=== PATIENT | male | born 1955 | race Caucasian/White ===

== ENCOUNTER → 2019-07-21 | Outpatient (CLI) | payer MEDICARE, OTHER ==
--- NOTE | 2019-07-21 13:42 | Diagnostic Imaging Report ---
PROCEDURE: MR imaging cervical spine without contrast. TECHNIQUE: Multiplanar, multisequence MR imaging of the cervical spine was performed without contrast. INDICATION: Neck pain. COMPARISON: No prior studies are available for comparison. FINDINGS: Curvature and alignment of the cervical spine is normal. Marrow signal intensity is unremarkable apart from occasional benign-appearing hemangiolipomas, largest located within the T2 vertebral body. There is generalized degenerative disc disease with variable disc space narrowing and desiccation. The cervical cord demonstrates normal signal intensity and normal morphology. C2-C3: Central canal and neuroforamina are widely patent. C3-C4: No significant central canal narrowing is seen. There is mild bilateral neuroforaminal narrowing due to uncovertebral joint degenerative change. C4-C5: Endplate osteophytes indent the ventral thecal sac. The central canal is widely patent. There is significant right and moderate left neuroforaminal narrowing. C5-C6: Endplate osteophytes indent the ventral thecal sac. Central canal is patent. There is moderate bilateral neuroforaminal stenosis. C6-C7: Central canal and neuroforamina are widely patent. C7-T1: Central canal and neuroforamina are widely patent. Paraspinous tissues are unremarkable. IMPRESSION: Generalized cervical spondylosis with multilevel neuroforaminal narrowing, described level by level above. No central canal stenosis is detected. Dictated by: Dictated on workstation # [id number]
--- NOTE | 2019-07-21 15:02 | Diagnostic Imaging Report ---
CLINICAL INDICATION: Patient with back pain. EXAM: MRI of the thoracic spine performed without IV contrast. Sequences include sagittal T1, sagittal T2, sagittal T2 fat-sat, and axial T2. COMPARISON: None. FINDINGS: There is a large intraosseous hemangioma within the T2 vertebra with some sparing of the right side of the vertebra. There is no acute thoracic spine fracture or dislocation. There is a small intraosseous hemangioma within the T9 vertebra. There are mildly hypertrophic spurs seen throughout the mid and lower thoracic spine. There is xjku-at-ziqizyuq facet arthropathy involving the thoracic spine which is most pronounced in the upper portion. There is a small posterior disc bulge at the T2-T3 and T6-T7 levels. There is no significant paraspinal soft tissue abnormality. There is moderate loss of intervertebral disc height at the T9-T10 level. There is no significant central spinal canal or neural foramen narrowing. IMPRESSION: 1: There is no acute fracture or dislocation. 2: There is mild thoracic spine degenerative disease. There is no significant central spinal canal or neural foramen narrowing. 3: There is intraosseous hemangioma within the T3 vertebra. Dictated by: Dictated on workstation # [id number]
== END ==
LOC: RAD 12:21
PROVIDERS: ATTEND Nurse Practitioner
DX: M47.22 Other spondylosis with radiculopathy, cervical region (principal); M50.10 Cervical disc disorder with radiculopathy, unspecified cervical region; M25.78 Osteophyte, vertebrae; M48.02 Spinal stenosis, cervical region; D18.09 Hemangioma of other sites; M47.814 Spondylosis without myelopathy or radiculopathy, thoracic region
CPT/HCPCS: 72141; 72146

== ENCOUNTER → 2019-10-21 | Outpatient (CLI) | payer MEDICARE, OTHER ==
[~2019-10-21] VITALS: Ht 182.9 cm; Wt 90.5 kg
[~2019-10-21] MED LIST: LIDOCAINE 1% INJ 20 ML 20 ML VIAL INJ ONE; LIDOCAINE 1% INJ 20 ML 20 ML VIAL ONE
--- NOTE | 2019-10-21 09:45 | Diagnostic Imaging Report ---
INDICATION: Thyroid nodule. Patient presents for ultrasound-guided fine-needle aspiration. Patient brought to the procedure room placed on the table in the supine position. Ultrasound imaging of the left neck was performed to evaluate appropriate entry site. The left neck was prepped and draped in usual sterile fashion. Small amount of 1% lidocaine utilized for local anesthesia. Total of 4 passes were made into the circumscribed hypoechoic solid nodule in the left lobe of the thyroid utilizing 25-gauge needles and fine-needle aspiration technique. The patient tolerated the procedure well and left department in stable condition. IMPRESSION: Ultrasound-guided left thyroid nodule FNA. Pathology results are currently pending. Dictated by: Dictated on workstation # [id number]
== END ==
LOC: RAD 08:47
PROVIDERS: ATTEND Otolaryngology Otolaryngology/Facial Plastic Surgery
DX: E04.2 Nontoxic multinodular goiter (principal)

== ENCOUNTER → 2020-04-12 | Outpatient (CLI) | payer MEDICARE, OTHER ==
--- NOTE | 2020-04-12 13:59 | Diagnostic Imaging Report ---
PROCEDURE: US Thyroid. TECHNIQUE: Multiple real-time grayscale images were obtained of the thyroid in various projections. INDICATION: Thyroid nodules, follow-up. COMPARISON: Correlation is made with outside thyroid ultrasound from 08/26/2019. FINDINGS: Right lobe of the thyroid measures 4.5 x 1.7 x 1.4 cm and the left lobe measures 4.1 x 2.4 x 2.1 cm. Isthmus is 3 mm in thickness. Small well-circumscribed hypoechoic nodule in right lobe measures 5 mm, suggestive of a cyst. This is similar to prior exam. Dominant solid circumscribed mass in left lobe of thyroid measures 2.5 x 1.7 x 1.8 cm. This compares with approximately 2.1 x 1.6 x 1.3 cm on prior. No new masses detected. IMPRESSION: Bilateral thyroid masses. A dominant mass in left lobe of the thyroid does measure slightly larger when compared with examination from August 2019. Dictated by: Dictated on workstation # [id number]
== END ==
LOC: RAD 12:31
PROVIDERS: ATTEND Otolaryngology Otolaryngology/Facial Plastic Surgery
DX: E04.2 Nontoxic multinodular goiter (principal)
CPT/HCPCS: 76536

== ENCOUNTER → 2020-06-12 | Outpatient (CLI) | payer MEDICARE, OTHER ==
--- NOTE | 2020-06-12 12:55 | Diagnostic Imaging Report ---
INDICATION: Knee pain. FINDINGS: The alignment is normal. There are mild degenerative changes. There is no fracture or dislocation. The soft tissues are unremarkable. IMPRESSION: Mild degenerative changes; otherwise, unremarkable. Dictated by: Dictated on workstation # [id number]
== END ==
LOC: RAD FS 09:47
PROVIDERS: ATTEND Nurse Practitioner
DX: M17.11 Unilateral primary osteoarthritis, right knee (principal)
CPT/HCPCS: 73562

== ENCOUNTER 2020-11-27 19:51 | Emergency (ER) | payer MEDICARE, OTHER ==
[2020-11-27] MEDS ORDERED: HYDROcodone/APAP 5 MG/325 MG (LORTAB) TAB PO ONE (20:15)
[2020-11-27] MEDS ORDERED: ACHD5005 PO (20:20)
--- NOTE | 2020-11-27 20:20 | ED Upper Extremity ---
General Chief Complaint: Trauma-Non Activation Stated Complaint: FALL,BACK/RIB PAIN History of Present Illness Date Seen by Provider: Nov 27, 2020 Time Seen by Provider: 20:16 Initial Comments 65-year-old male presents with left-sided rib pain after a fall today. He landed on his left side of his chest wall. Having some pain with deep breath and with movement since then. Does have history of rib fractures years ago. Denies any recent illness, fever or chills. Denies abdominal, neck, extremity or spinal pain. Allergies and Home Medications Allergies Coded Allergies: No Known Drug Allergies (Unverified , 10/21/19) Patient Home Medication List Home Medication List Reviewed: Yes Review of Systems Constitutional: No dizziness, No fever, No malaise, No weakness EENTM: No no symptoms reported Respiratory: see HPI; No cough, No hemoptysis, No orthopnea, No short of breath, No stridor, No wheezing Cardiovascular: chest pain (left post lateral rib pain- 2 to fall); No edema, No palpitations, No syncope Gastrointestinal: No abdominal pain, No nausea, No vomiting Musculoskeletal: No joint pain; muscle pain; No neck pain Skin: No change in color, No lesions Past Jxykntf-Sbpfcy-Awolwh Hx Past Med/Social Hx: Reviewed Nursing Past Med/Soc Hx Patient Social History Alcohol Use: Denies Use 2nd Hand Smoke Exposure: No Recent Hopitalizations: No Past Medical History Surgeries: Yes Orthopedic Respiratory: No Cardiac: Yes Hypertension Neurological: No Genitourinary: No Gastrointestinal: No Musculoskeletal: No Endocrine: Yes Diabetes, Non-Insulin dep HEENT: No Cancer: No Psychosocial: No Integumentary: No Blood Disorders: No Physical Exam Vital Signs Capillary Refill : Height, Weight, BMI Height: '" Weight: lbs. oz. kg; 27.05 BMI Method: General Appearance: WD/WN, no apparent distress Neck: non-tender, full range of motion, supple Cardiovascular: regular rate, rhythm, no edema, other (tenderness - left thorax, post-lateral ribs 7-9) Respiratory: lungs clear, normal breath sounds, no respiratory distress, no accessory muscle use Back: normal inspection, no CVA tenderness, no vertebral tenderness Shoulder: normal inspection, non-tender Elbow/Forearm: normal inspection, non-tender Progress/Results/Core Measures Results/Orders My Orders Orders - JAGRUTI VENEGAS DO Chest 1 View Ap/Pa Only (11/27/20 20:15) Hydrocodone/Apap 5/325 Tablet (Lortab 5 (11/27/20 20:15) Departure Impression Primary Impression: Contusion of rib on left side Qualified Codes: S20.212A - Contusion of left front wall of thorax, initial encounter Disposition: HOME, SELF-CARE Condition: Stable Departure-Patient Inst. Decision time for Depature: 20:19 Referrals: HARDEEP SANTIAGO MD (PCP/Family) Primary Care Physician Patient Instructions: Rib Fracture or Bruised Rib ED Add. Discharge Instructions: Follow up with Dr Santiago in 1 week All discharge instructions reviewed with patient and/or family. Voiced understanding. Scripts Hydrocodone/Acetaminophen (Hydrocodone-Acetamin 5-325 mg) 1 Each Tablet 1 EACH PO Q4H for Abdominal Pain, #15 TAB Prov: JAGRUTI VENEGAS DO 11/27/20 JAGRUTI VENEGAS DO Nov 27, 2020 20:20
[2020-11-27 20:41] VITALS: BP 153/99
--- NOTE | 2020-11-27 20:42 | Diagnostic Imaging Report ---
CLINICAL INDICATIONS: Patient status post fall, left-sided lower posterior rib pain. EXAM: Portable chest x-ray. COMPARISON: None. FINDINGS: There are discoid opacities involving both lung bases suspected to represent atelectasis. There is no lung infiltrate or pleural effusion. Pulmonary vasculature and cardiac silhouette are within normal limits. There are hypertrophic spurs involving the thoracic spine. There is no gross rib fracture seen on the given images. IMPRESSION: 1: There is mild bibasilar atelectasis. 2: There is no pneumothorax. There is no gross rib fracture as visualized. Dictated by: Dictated on workstation # [id number]
== END 2020-11-27 20:40 | disposition home or self-care (01) ==
LOC: EDUNIT# 19:51 → ER FS 19:52
DX: S20.20XA Contusion of thorax, unspecified, initial encounter (principal); W19.XXXA Unspecified fall, initial encounter
CPT/HCPCS: 71045

== ENCOUNTER → 2021-07-25 | Outpatient (CLI) | payer MEDICARE, OTHER ==
[~2021-07-25] MED LIST changes: +ACHD5005 PO; -LIDOCAINE 1% INJ 20 ML 20 ML VIAL INJ ONE; -LIDOCAINE 1% INJ 20 ML 20 ML VIAL ONE
--- NOTE | 2021-07-25 17:57 | Diagnostic Imaging Report ---
PROCEDURE: US Thyroid. TECHNIQUE: Multiple real-time grayscale images were obtained of the thyroid in various projections. INDICATION: Left lobe thyroid nodule. COMPARISON: Exam compared with study of 10/29/2020. FINDINGS: Right thyroid lobe measured 4.5 x 1.7 x 1.2 cm and contains a tiny 5 mm cyst at its lower pole with no solid or suspicious-appearing mass. The left thyroid lobe measured 4.7 x 2.8 x 2.3 cm and contains a heterogeneous but largely hypoechoic well-defined solid mass wider than tall measuring 3.1 x 2.1 x 2.1 cm today, previously 2.5 x 1.7 x 1.8 cm. IMPRESSION: Enlarging left thyroid hypoechoic solid TI-RADS 4 lesion mass. If not already performed, sonographic-guided fine-needle aspiration biopsy of this lesion recommended. Dictated on workstation # [id number]
== END ==
LOC: RAD FS 11:56
PROVIDERS: ATTEND Otolaryngology Otolaryngology/Facial Plastic Surgery
DX: E04.1 Nontoxic single thyroid nodule (principal)
CPT/HCPCS: 76536

== ENCOUNTER → 2022-02-03 | Outpatient (CLI) | payer MEDICARE, OTHER ==
--- NOTE | 2022-02-03 12:39 | Diagnostic Imaging Report ---
PROCEDURE: US Thyroid. TECHNIQUE: Multiple real-time grayscale images were obtained of the thyroid in various projections. INDICATION: Follow-up thyroid nodules. COMPARISON: 07/25/2021. FINDINGS: The right thyroid lobe measures 4.4 x 2.1 x 1.4 cm in size. Echogenicity and vascularity appear normal. There is a hypoechoic partially cystic, partially solid nodule in the inferior right thyroid, which measures 5 x 4 x 4 mm in size with circumscribed borders. No calcification is seen. No follow-up is indicated based on TI-RADS criteria. The isthmus measures 3 mm in thickness. The left thyroid lobe demonstrates a homogeneous background echotexture. There is a circumscribed hypoechoic solid nodule which is mildly heterogeneous but has no calcifications, and measures 3.3 x 2.1 x 2.4 cm in size. This is taller than wide. This previously measured 3.1 x 2.1 x 2.1 cm. IMPRESSION: 1. Hypoechoic large solid nodule in the left thyroid lobe qualifies for FNA. This has increased in size compared to prior exams, and repeat FNA could be considered. Dictated by: Dictated on workstation # [id number]
== END ==
LOC: RAD 10:50
PROVIDERS: ATTEND Otolaryngology Otolaryngology/Facial Plastic Surgery
DX: E04.1 Nontoxic single thyroid nodule (principal)
CPT/HCPCS: 76536

== ENCOUNTER → 2022-03-06 | Outpatient (CLI) | payer MEDICARE, OTHER ==
[~2022-03-06] VITALS: Ht 182.9 cm; Wt 91.8 kg
[~2022-03-06] MED LIST changes: +LIDOCAINE 1% INJ 20 ML VIAL INJ ONE
--- NOTE | 2022-03-06 16:25 | Diagnostic Imaging Report ---
INDICATION: Thyroid nodule. Patient presents for ultrasound-guided fine needle aspiration and Rotex biopsy. PROCEDURE: Patient was brought to the procedure room and placed on table in the supine position. Ultrasound imaging of the left neck was performed to evaluate appropriate entry site. Left neck was then prepped and draped in the usual sterile fashion. A small amount of 1% lidocaine was utilized for local anesthesia. A total of four passes were made into the dominant solid mass in left lobe of the thyroid utilizing 25-gauge needles and fine-needle aspiration technique. A single pass was made with a Rotex needle and Rotex biopsy was performed. Hemostasis was obtained. Patient tolerated the procedure well and left the department in stable condition. IMPRESSION: Successful ultrasound-guided fine needle aspiration and Rotex biopsy of dominant left lobe thyroid nodule. Pathology results are currently pending. Dictated by: Dictated on workstation # [id number]
== END ==
LOC: RAD 11:30
PROVIDERS: ATTEND Otolaryngology Otolaryngology/Facial Plastic Surgery
DX: E04.1 Nontoxic single thyroid nodule (principal)
CPT/HCPCS: 10005

== ENCOUNTER 2023-08-24 07:30 | Emergency (ER) | payer MEDICARE ==
[~2023-08-24] VITALS: Ht 182 cm; Wt 94.0 kg
[~2023-08-24 07:30] MED LIST changes: -LIDOCAINE 1% INJ 20 ML VIAL INJ ONE
[2023-08-24 07:39] VITALS: BP 166/96
--- NOTE | 2023-08-24 07:49 | ED Abdominal Pain ---
General Chief Complaint: Abdominal/GI Problems Stated Complaint: ABD PAIN Source of Information: Patient History of Present Illness Date Seen by Provider: Aug 24, 2023 Time Seen by Provider: 07:34 Initial Comments 68-year-old male presenting with complaints of right lower quadrant abdominal pain that woke him up around 2 AM. He states that he has had severe pain around 7 or 8 when the pain started. He did have some nausea when the pain first started. He did not have any emesis. He has not had anything to eat or drink since around 9 PM last night. He denies having pain like this previously. Currently he feels comfortable on is not complaining of pain. He states that he had gone to urgent care prior to coming here in the clinic pushed on his abdomen he had severe pain. He is not having that presently. He denies any pain or burning with urination. He has not seen any blood in his urine. He has not had any change in his bowel movements. States that he had a bowel movement this morning that was normal and did not affect his pain. He did take some Tums and his and given him a dicyclomine that she had. Timing/Duration: 4-6 Hours Severity/Quality: Severe, Aching Location: RLQ Radiation: No Radiation Activities at Onset: Sleeping Modifying Factors: Worsens With Movement, Worsens With Palpation Associated Symptoms: No Back Pain, No Chest Pain, No Diaphoresis, No Fever/Chills, No Fatigue, No Headache, No Heartburn, No Rash, No Shortness of Air, No Swelling/Mass in Abdomen, No Syncope, No Weakness Allergies and Home Medications Allergies Coded Allergies: No Known Drug Allergies (Unverified , 10/21/19) Patient Home Medication List Home Medication List Reviewed: Yes Hydrocodone/Acetaminophen (Hydrocodone-Acetamin 5-325 mg) 1 Each Tablet, 1 EACH PO Q4H Prescribed by: JAGRUTI VENEGAS on 11/27/202019 Review of Systems Review of Systems Constitutional: No chills, No fever EENTM: No Symptoms Reported Respiratory: No Symptoms Reported Cardiovascular: No Symptoms Reported Gastrointestinal: See HPI Genitourinary: Denies Hematuria, Denies Pain Musculoskeletal: no symptoms reported Skin: no symptoms reported Psychiatric/Neurological: No Symptoms Reported Past Qxmeorf-Bvnalp-Fdtxce Hx Past Medical History Surgery/Hospitalization HX: Diabetes, Hypertension, Hypothyroid, Hyperlipidemia Surgeries: Yes Orthopedic Respiratory: No Cardiac: Yes Hypertension Neurological: No Genitourinary: No Gastrointestinal: No Musculoskeletal: No Endocrine: Yes Diabetes, Non-Insulin dep HEENT: No Cancer: No Psychosocial: No Integumentary: No Blood Disorders: No Physical Exam Vital Signs Vital Signs - First Documented 08/24/23 07:39 Temp 36.6 B/P (MAP) 166/96 (119) Pulse Ox 100 O2 Delivery Room Air Capillary Refill : Height/Weight/BMI Height: '" Weight: lbs. oz. kg; 27.44 BMI Method: General Appearance: WD/WN, no apparent distress HEENT: PERRL/EOMI Respiratory: chest non-tender, lungs clear, normal breath sounds, no respiratory distress, no accessory muscle use Cardiovascular: normal peripheral pulses, regular rate, rhythm Gastrointestinal: normal bowel sounds, non tender, soft, no pulsatile mass; No distended, No guarding, No rebound, No tenderness Rectal: deferred Extremities: normal range of motion, non-tender, normal capillary refill Back: no CVA tenderness Neurologic/Psychiatric: alert, oriented x 3 Skin: normal color, warm/dry Images 1 - points to RLQ when he reports area for pain, but no pain on exam here in ED Progress/Results/Core Measures Results/Orders Lab Results Laboratory Tests Test 08/24/23 07:37 08/24/23 07:50 Range/Units White Blood Count 11.7 H 4.3-11.0 10^3/uL Red Blood Count 4.67 4.30-5.52 10^6/uL Hemoglobin 14.3 13.3-17.7 g/dL Hematocrit 42 40-54 % Mean Corpuscular Volume 89 80-99 fL Mean Corpuscular Hemoglobin 31 25-34 pg Mean Corpuscular Hemoglobin Concent 34 32-36 g/dL Red Cell Distribution Width 12.3 10.0-14.5 % Platelet Count 140 130-400 10^3/uL Mean Platelet Volume 12.5 H 9.0-12.2 fL Immature Granulocyte % (Auto) 0 % Neutrophils (%) (Auto) 86 H 42-75 % Lymphocytes (%) (Auto) 8 L 12-44 % Monocytes (%) (Auto) 5 0-12 % Eosinophils (%) (Auto) 0 0-10 % Basophils (%) (Auto) 0 0-10 % Neutrophils # (Auto) 10.0 H 1.8-7.8 10^3/uL Lymphocytes # (Auto) 1.0 1.0-4.0 10^3/uL Monocytes # (Auto) 0.6 0.0-1.0 10^3/uL Eosinophils # (Auto) 0.0 0.0-0.3 10^3/uL Basophils # (Auto) 0.0 0.0-0.1 10^3/uL Immature Granulocyte # (Auto) 0.0 0.0-0.1 10^3/uL Neutrophils % (Manual) 76 % Lymphocytes % (Manual) 5 % Monocytes % (Manual) 4 % Band Neutrophils 14 % Atypical Lymphocytes 1 % Platelet Estimate ADEQUATE Blood Morphology Comment NORMAL Sodium Level 138 135-145 MMOL/L Potassium Level 3.8 3.6-5.0 MMOL/L Chloride Level 101 98-107 MMOL/L Carbon Dioxide Level 26 21-32 MMOL/L Anion Gap 11 5-14 MMOL/L Blood Urea Nitrogen 25 H 7-18 MG/DL Creatinine 1.05 0.60-1.30 MG/DL Estimat Glomerular Filtration Rate 77 BUN/Creatinine Ratio 24 Glucose Level 219 H 70-105 MG/DL Calcium Level 8.6 8.5-10.1 MG/DL Corrected Calcium 8.4 L 8.5-10.1 MG/DL Total Bilirubin 0.8 0.1-1.0 MG/DL Aspartate Amino Transf (AST/SGOT) 22 5-34 U/L Alanine Aminotransferase (ALT/SGPT) 22 0-55 U/L Alkaline Phosphatase 80 40-136 U/L Total Protein 7.0 6.4-8.2 GM/DL Albumin 4.3 3.2-4.5 GM/DL Lipase 45 8-78 U/L Urine Color YELLOW Urine Clarity CLEAR Urine pH 6.0 5-9 Urine Specific Hubertus >=1.030 1.016-1.022 Urine Protein NEGATIVE NEGATIVE Urine Glucose (UA) NEGATIVE NEGATIVE Urine Ketones TRACE H NEGATIVE Urine Nitrite NEGATIVE NEGATIVE Urine Bilirubin NEGATIVE NEGATIVE Urine Urobilinogen 0.2 < = 1.0 MG/DL Urine Leukocyte Esterase NEGATIVE NEGATIVE Urine RBC (Auto) NEGATIVE NEGATIVE Urine RBC RARE /HPF Urine WBC RARE /HPF Urine Squamous Epithelial Cells RARE /HPF Urine Crystals NONE /LPF Urine Bacteria NEGATIVE /HPF Urine Casts NONE /LPF Urine Mucus NEGATIVE /LPF Urine Culture Indicated NO My Orders Orders - DEEPTHI GOMEZ MD Comprehensive Metabolic Panel (08/24/23 07:42) Lipase (08/24/23 07:42) Ua Culture If Indicated (08/24/23 07:42) Ed Iv/Invasive Line Start (08/24/23 07:42) Cbc And Automated Diff (08/24/23 07:42) Ct Abdomen/Pelvis Wo (08/24/23 07:42) Manual Differential (08/24/23 07:37) Vital Signs/I&O 08/24/23 07:39 Temp 36.6 B/P (MAP) 166/96 (119) Pulse Ox 100 O2 Delivery Room Air Progress Progress Note #1: Progress Note Differential diagnosis includes muscle strain, constipation, colitis, diverticulitis, appendicitis, renal colic, cystitis, pyelonephritis. Establish peripheral IV access and send labs for complete blood count, comprehensive metabolic profile, lipase, urinalysis. CT scan of the abdomen and pelvis with out IV contrast to look for possible stone or pathology in the right lower quadrant. Patient denied nausea or pain currently so will defer any medications until he starts having symptoms. Advised to let us know if he sta rted to have pain or felt nauseated or feel like he was going to throw up so that we could order medicine for pain or nausea. Continue with n.p.o. status until results are back. Progress Note #2: Progress Note Complete blood count had mild elevation of the white blood cells to upper limit of normal at 11.7. Hemoglobin normal at 14.3 and platelets normal at 140. He had 76% neutrophils with 14% bands. Urinalysis was low concentrated with specific gravity greater than 1.030 and trace ketones. Otherwise he had no findings for UTI or hematuria. Comprehensive metabolic profile had mild elevation of the BUN of 25 and glucose to 219. LFTs were normal and lipase was normal at 45. CT scan of the abdomen and pelvis without contrast was read out by the radiologist as no acute pathology in the abdomen or pelvis. He does have diverticulosis without diverticulitis. The appendix did not show any signs of inflammation or enlargement. His gallbladder was dilated with sludge within the gallbladder. There is no pericholecystic fluid or signs of obstruction. Will check again with patient and see how he is doing now. Review findings with him and his that nothing specific showed on CT scan to account for RLQ pain but he does have some gallbladder sludge present. Recommend low fat diet and consider surgery consult for gallbladder. Return or seek medical care if having worsening pain, fever over 101 F, or uncontrollable nausea/vomiting. Patient states he did have a small amount of pain that come back at 1 point but is feeling fine again now. He does relate that he had eaten a fried bologna sandwich last night before going to bed. This could certainly have aggravated his gallbladder and may be the source of his pain this morning. As he is not having any pain currently will encourage him to check back with the clinic and they may want to do an ultrasound or refer him to the surgeon. In the meantime follow the low-fat bland diet to avoid further aggravation to his gallbladder. Diagnostic Imaging Diagonstic Imaging: CT Plain Films/CT/US/NM/MRI: abdomen, pelvis Comments NAME: IVONE GRIJALVA III [facility] REC#: [id number] PT STATUS: REG ER : 1955 PHYSICIAN: DEEPTHI GOMEZ MD ADMIT DATE: 08/24/23/ER FS Draft Date of Exam:08/24/23 CT ABDOMEN/PELVIS WO PROCEDURE: CT abdomen and pelvis without contrast. TECHNIQUE: Multiple contiguous axial images were obtained through the abdomen and pelvis without the use of intravenous contrast. Auto Exposure Controls were utilized during the CT exam to meet ALARA standards for radiation dose reduction. INDICATION: Right lower quadrant abdominal pain. History of bladder cancer. COMPARISON: None. FINDINGS: Lung bases are clear. Cholelithiasis and/or layering sludge. The liver, pancreas, spleen, adrenals, kidneys, collecting systems, bladder and appendix are negative on this noncontrast exam. No free intraperitoneal air or fluid. No lymphadenopathy. No evidence of bowel obstruction. Mild colonic diverticulosis without evidence of active diverticulitis. No acute osseous findings. IMPRESSION: 1. No acute CT findings in the abdomen or pelvis. 2. Cholelithiasis and/or layering sludge in the gallbladder. No secondary findings of cholecystitis. 3. Mild colonic diverticulosis without evidence of active diverticulitis. Dictated on workstation # [id number] Dict: 08/24/23818 Trans: 08/24/2332 [facility] [id number] Interpreted by: BISHOP WING MD Electronically signed by: Reviewed: Reviewed by Me Departure Impression Primary Impression: Right lower quadrant abdominal pain Additional Impression: Cholelithiasis Qualified Codes: K80.20 - Calculus of gallbladder without cholecystitis without obstruction Disposition: HOME, SELF-CARE Condition: Stable Departure-Patient Inst. Decision time for Depature: 08:56 Referrals: SELFHARDEEP MD (PCP) Primary Care Physician GIANA PITTS DO Patient Instructions: Abdominal Pain, Adult ED, Gallbladder Diet, Gallstones ED Add. Discharge Instructions: Recommend low fat diet and consider surgery consult for gallbladder. Try to drink more water and stay better hydrated. Return or seek medical care if having worsening pain, fever over 101 F, or uncontrollable nausea/vomiting. All discharge instructions reviewed with patient and/or family. Voiced understanding. DEEPTHI GOMEZ MD Aug 24, 2023 07:49
[2023-08-24 07:50] LABS: BASOPHILS % (AUTO) 0 % (0-10); EOSINOPHILS % (AUTO) 0 % (0-10); HEMATOCRIT 42 % (40-54); HEMOGLOBIN 14.3 g/dL (13.3-17.7); LYMPHOCYTES % (AUTO) 8 % (12-44); MEAN CORPUSCULAR HEMOGLOBIN 31 pg (25-34); MEAN CORPUSCULAR HGB CONC 34 g/dL (32-36); MEAN CORPUSCULAR VOLUME 89 fL (80-99); MEAN PLATELET VOLUME 12.5 fL (9.0-12.2); MONOCYTES # (AUTO) 0.6 10^3/uL (0.0-1.0); MONOCYTES % (AUTO) 5 % (0-12); NEUTROPHILS % (AUTO) 86 % (42-75); PLATELET COUNT 140 10^3/uL (130-400); WHITE BLOOD COUNT 11.7 10^3/uL (4.3-11.0)
[2023-08-24 07:58] LABS: BILIRUBIN,URINE NEGATIVE (NEGATIVE); CLARITY,URINE CLEAR; COLOR,URINE YELLOW; GLUCOSE, URINE (UA) NEGATIVE (NEGATIVE); KETONES,URINE TRACE (NEGATIVE); LEUKOCYTE ESTERASE ,URINE NEGATIVE (NEGATIVE); NITRITE,URINE NEGATIVE (NEGATIVE); PROTEIN,URINE NEGATIVE (NEGATIVE)
[2023-08-24 08:13] LABS: BACTERIA,URINE NEGATIVE /HPF; RBC,URINE RARE /HPF; SQUAMOUS EPITHELIAL CELL,UR RARE /HPF; WBC,URINE RARE /HPF
[2023-08-24 08:29] LABS: CALCIUM 8.6 MG/DL (8.5-10.1); CREATININE SERUM 1.05 MG/DL (0.60-1.30); POTASSIUM 3.8 MMOL/L (3.6-5.0)
[2023-08-24 08:30] LABS: ALBUMIN 4.3 GM/DL (3.2-4.5); BILIRUBIN,TOTAL 0.8 MG/DL (0.1-1.0)
--- NOTE | 2023-08-24 08:32 | Diagnostic Imaging Report ---
PROCEDURE: CT abdomen and pelvis without contrast. TECHNIQUE: Multiple contiguous axial images were obtained through the abdomen and pelvis without the use of intravenous contrast. Auto Exposure Controls were utilized during the CT exam to meet ALARA standards for radiation dose reduction. INDICATION: Right lower quadrant abdominal pain. History of bladder cancer. COMPARISON: None. FINDINGS: Lung bases are clear. Cholelithiasis and/or layering sludge. The liver, pancreas, spleen, adrenals, kidneys, collecting systems, bladder and appendix are negative on this noncontrast exam. No free intraperitoneal air or fluid. No lymphadenopathy. No evidence of bowel obstruction. Mild colonic diverticulosis without evidence of active diverticulitis. No acute osseous findings. IMPRESSION: 1. No acute CT findings in the abdomen or pelvis. 2. Cholelithiasis and/or layering sludge in the gallbladder. No secondary findings of cholecystitis. 3. Mild colonic diverticulosis without evidence of active diverticulitis. Dictated by: Dictated on workstation # [id number]
[2023-08-24 08:41] LABS: ATYPICAL LYMPHOCYTES 1 %; BAND NEUTROPHILS 14 %; LYMPHOCYTES % (MANUAL) 5 %; MONOCYTES % (MANUAL) 4 %; NEUTROPHILS % (MANUAL) 76 %; PLATELET ESTIMATE ADEQUATE; RBC MORPH NORMAL
== END 2023-08-24 09:00 | disposition home or self-care (01) ==
LOC: EDUNIT# 07:30 → ER FS 07:31
DX: K80.20 Calculus of gallbladder without cholecystitis without obstruction (principal)
CPT/HCPCS: 36415; 74176; 80053; 81000; 83690; 85007; 85027